=== PATIENT | female | born 1985 | race Caucasian/White ===

== ENCOUNTER 2018-01-09 14:38 | Emergency (ER) | payer OTHER ==
[~2018-01-09] VITALS: Ht 149.9 cm; Wt 54.4 kg
[2018-01-09 14:40] VITALS: BP 99/99
--- NOTE | 2018-01-09 14:50 | NUR ---
PT SITTING IN CHAIR COMFORATBLY. NO S/S OF DISTRESS NOTED
[2018-01-09 15:12] VITALS: BP 98/89
--- NOTE | 2018-01-09 15:13 | NUR ---
Patient discharged with v/s stable. Written and verbal after care instructions given and explained. Patient verbalized understanding. Police with in custody. All questions addressed prior to discharge. Advised to follow up with PMD.
== END 2018-01-09 15:13 | disposition home or self-care (01) ==
LOC: MED 14:38
DX: Z02.89 Encounter for other administrative examinations (principal)
CPT/HCPCS: 99283